=== PATIENT | female | born 2000 | race African-American/Black ===

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

== ENCOUNTER 2018-11-24 20:58 | Emergency (ER) | payer BC, MEDICAID ==
[~2018-11-24] VITALS: Ht 165.1 cm; Wt 95.0 kg
[2018-11-24 23:53] VITALS: BP 121/81
== END 2018-11-24 23:54 | disposition home or self-care (01) ==
LOC: ER 20:58
DX: S80.861A Insect bite (nonvenomous), right lower leg, initial encounter (principal); J45.909 Unspecified asthma, uncomplicated; W57.XXXA Bitten or stung by nonvenomous insect and other nonvenomous arthropods, initial encounter; Y93.9 Activity, unspecified; Y92.9 Unspecified place or not applicable
CPT/HCPCS: 99283